=== PATIENT | female | born 1965 | race Caucasian/White ===

== ENCOUNTER 2018-09-18 05:19 | Inpatient (IN) ==
[2018-09-18] MEDS ORDERED: MORPHINE IV ONE (05:43)
--- NOTE | 2018-09-18 05:47 | PROVIDER DOCUMENTATION ---
HPI-General Adult - General Chief Complaint: Chest Pain Stated Complaint: CP Time Seen by Provider: 09/18/18 05:29 Source: patient, EMS Allergies/Adverse Reactions: Patient Allergies Allergy/AdvReac Type Severity Reaction Status Date / Time doxycycline Allergy NAUSEA/VOMI Verified 07/10/13 16:53 TING ibuprofen Allergy RASH Verified 07/10/13 16:53 Home Medications: Home Medication List Medication Instructions Recorded Confirmed Last Taken Type Clonazepam [Klonopin] 1 mg PO HS 01/23/15 01/23/15 Unknown History Hydrocodone/Acetaminophen [[place] 1 tab PO BID 01/23/15 01/23/15 Unknown History 7.5-325 Tablet] Methocarbamol [Robaxin-750] 750 mg PO PRN PRN 01/23/15 01/23/15 Unknown History Alprazolam [Xanax] 1 mg PO QHS #20 tablet 01/24/15 Unknown Rx Acetaminophen/Diphenhydramine 1 ea PO Q6H PRN #30 tab 12/31/17 Unknown Rx [[place] 325-12.5 mg Tablet] - History of Present Illness -Gen Adult Nature of Presenting Problems: Pt presents with cp, started tonight, substernal, sharp to pressure, no radiation, associated with sob, pt has pmh of CAD with stents, pt denies f/c, santiago, cough, ap, n/v/d. Pt is lying in bed in no acute distress. Location of Pain/Injury: reports: chest Pain Radiation: reports: no radiation Quality of Pain: reports: pressure, sharp Severity: reports: moderate Onset/Duration: reports: 1-3 hours ago Timing: reports: still present Context/Activities at Onset: reports: none Modifying Factors: improves with: nothing Associated Symptoms: reports: shortness of breath Similar Symptoms Previously?: No Recently seen or treated by another doctor?: No Review of Systems - Adult - REVIEW OF SYSTEMS - ADULT Constitutional: reports: no symptoms reported Eyes: reports: no symptoms reported Ears, Nose, Mouth & Throat: reports: no symptoms reported Cardiovascular: reports: see HPI Respiratory: reports: no symptoms reported Gastrointestinal: reports: no symptoms reported Genitourinary: reports: no symptoms reported Musculoskeletal: reports: no symptoms reported Integumentary: reports: no symptoms reported Neurological: reports: no symptoms reported Psychiatric: reports: no symptoms reported Endocrine: reports: no symptoms reported Hematologic/Lymphatic: reports: no symptoms reported Allergic/Immunologic: reports: no symptoms reported All Other Systems: Reviewed and Negative Past History - Adult - PAST MEDICAL HISTORY-ADULT Review of Records: reports: Old Records Reviewed, Nursing Assessment Review, Medications Reviewed, Social history reviewed & non-contributory. Major Childhood Illnesses: reports: denies history Cardiovascular: reports: HTN, hyperlipidemia Respiratory: reports: COPD Gastrointestinal: reports: denies history Genitourinary: reports: denies history Musculoskeletal: reports: chronic pain Neurological: reports: headaches/migraines Psychiatric: reports: anxiety, depression Endocrine/Immune: reports: lupus Other Conditions: reports: denies history - PRIOR SURGERIES/PROCEDURES Surgical/Procedure History: reports: colonoscopy, hysterectomy, orthopedic (extremity) - IMMUNIZATION STATUS Childhood Immunizations: See Nurse Assessment Flu Vaccine: See Nurse Assessment - FAMILY HISTORY Family History: diabetes, CAD over 55 yo, HTN Physical Exam-General - PHYSICAL EXAM-ADULT Initial Vital Signs Reviewed: Yes - CONSTITUTIONAL General Appearance: appears well - EYES Eyes: PERRL/EOMI - HEAD, EARS, NOSE, MOUTH & THROAT HENMT: TMs normal - NECK Neck: normal inspection - RESPIRATORY Respiratory: no respiratory distress, no accessory muscle use - CARDIOVASCULAR Cardiovascular: regular rate, rhythm - GASTROINTESTINAL (ABDOMEN) Abdominal Exam: non tender, soft - LYMPHATIC Lymphatic: no adenopathy - MUSCULOSKELETAL Back Exam: normal inspection Extremity: normal range of motion - SKIN Integumentary: normal color - NEUROLOGIC Neurologic: baggage clerk II-XII nml as tested - PSYCHIATRIC Psych/Mental Status: normal mood/affect Progress - PLAN OF CARE/RESULTS Progress/Plan/Lab Results: Orders Category Date Time Status Nursing- Obtain EKG ONCE Care 09/18/18 05:43 Ordered cxr [CHEST-1 VIEW] [RAD] Stat Exams 09/18/18 05:42 Ordered CBC WITH ELECTRONIC DIFF [HEME] Stat Lab 09/18/18 05:42 Uncollected COMPREHENSIVE METABOLIC PANEL [CHEM] Stat Lab 09/18/18 05:42 Uncollected PRO B-NATRIURETIC PEPTIDE Stat Lab 09/18/18 05:42 Uncollected TROPONIN T Stat Lab 09/18/18 05:42 Uncollected Morphine Med 09/18/18 05:43 Once 4 mg IV NOW ONE EKG [EKG] Stat Ther 09/18/18 05:43 Ordered Result Diagrams: 09/18/18 05:41 09/18/18 05:41 - CONSULTS/PCP/HOSPITALIST Notification #1 *Consult/PCP/Hospitalist*: MATTHEW JACOBS ADMIT TO HOSPITALIST 0700 Time Discussed: 07:00 Departure - Departure Date of Disposition Decision: 09/18/18 Time of Disposition Decision: 08:11 DIAGNOSIS: Chest pain due to CAD, CHF (congestive heart failure), Macrocytic anemia Disposition: ADMITTED INPATIENT 09 Certified Medical Emergency: Emergent Condition: Stable Referrals and Follow-Ups: Jesus Elizalde MD [Primary Care Provider] - - Critical Care Note This patient required my direct & personal management of CC.: No Attestation - Physician/ RAFAELA Attestation Patient care was provided by Advanced Practice Provider:: No The physician spent face to face time with patient:: Yes Advanced Practice Provider documentation review:: Supervising physician onsite and consulted in the evaluation and care of this patient. The physician did have a face to face encounter with the patient.
[2018-09-18 05:54] LABS: BASO# 0.03 X1000 (0.0-0.2); BASO% 0.5 % (0.0-0.8); EOS# 0.33 X1000 (0.0-0.7); HEMATOCRIT 34.8 % (37.0-47.0); HEMOGLOBIN 11.3 g/dL (12.0-16.0); LYMPH# 2.28 X1000 (1.2-3.4); LYMPH% 41.7 % (20.5-51.1); MCH 33.1 PG (27-31); MCHC 32.5 g/dL (33-37); MCV 102.1 FL (81-99); MONO# 0.47 X1000 (0.11-0.59); MONO% 8.6 % (1.7-9.3); MPV 10.7 FL (7.4-10.4); NEUT# 2.36 X1000 (1.4-6.5); NEUT% 43.2 % (42.2-75.2); PLT 158 X1000 (130-400); RBC 3.41 XMIL (4.2-5.4); RDW 13.5 % (11.5-14.5); WBC 5.47 X1000 (4.8-10.8)
[2018-09-18] MEDS ORDERED: ZOFRAN ONE (05:59)
[2018-09-18] MEDS ORDERED: ZOFRAN IV ONE (06:02)
[2018-09-18 06:30] LABS: ALB/GLOB RATIO 1.6; ALBUMIN 3.9 g/dL (3.5-5.0); CALCIUM 8.5 mg/dL (8.8-10.2); CREATININE 1.1 mg/dL (0.5-0.9); POTASSIUM 3.8 mmol/L (3.5-5.1); TOTAL BILIRUBIN 0.26 mg/dL (0.20-1.00); TOTAL PROTEIN 6.3 g/dL (6.3-8.3)
--- NOTE | 2018-09-18 07:00 | EKG Report ---
Test Performed on : 09/18/2018 05:28:16 AM Test Reason : chest pain Blood Pressure : / mmHG Vent. Rate : 100 BPM Atrial Rate : 100 BPM P-R Int : 144 ms QRS Dur : 080 ms QT Int : 340 ms P-R-T Axes : 068 042 073 degrees QTc Int : 438 ms Normal sinus rhythm. Possible Inferior infarct (cited on or before 26-FEB-2017) Abnormal ECG When compared with ECG of 26-FEB-2017 14:03, Sinus rhythm. has replaced Ectopic atrial rhythm. Minimal criteria for Anterior infarct are no longer present Questionable change in initial forces of Inferior leads Nonspecific T wave abnormality no longer evident in Anterior leads Unconfirmed Result
[2018-09-18] MEDS ORDERED: LASIX IV ONE (07:46)
[2018-09-18] MEDS ORDERED: ZOFRAN PO PRN (07:49)
[2018-09-18] MEDS ORDERED: NS 1,000 ML IV ONE (07:49)
[2018-09-18] MEDS ORDERED: TYLENOL PO PRN (07:49)
--- NOTE | 2018-09-18 08:02 | ED EKG INTERP ---
This chart was entered by Amparo Lyles Scribe, acting as scribe for Donnie Chinchilla DO. EKG Interpretation - EKG Time of EKG reading by physician:: 07:49 EKG Read and Signed by:: Donnie Chinchilla EKG Interpretation (*Must complete 3 of following elements*): Abnormal Rate: 63 Rhythm: NSR [place]: normal QRS: normal FL Interval: normal ST Wave: normal Comments: inferior infarct, age undetermined Attestation - Physician/ RAFAELA Attestation Patient care was provided by Advanced Practice Provider:: No The physician spent face to face time with patient:: Yes Advanced Practice Provider documentation review:: Supervising physician onsite and consulted in the evaluation and care of this patient. The physician did have a face to face encounter with the patient. This chart was documented by the indicated scribe, (Amparo Lyles Scribe) and accurately reflects the services I performed and decisions made by , Donnie Chinchilla DO, as attested by the provider's signature.
[2018-09-18] MEDS ORDERED: NITROGLYCERIN SL PRN (09:11)
--- NOTE | 2018-09-18 09:22 | HISTORY AND PHYSICAL ---
Ms. Greco is a 53-year-old who started having chest pain, it woke her up last night. She came to the emergency room on the morning of 09/18/2018. She has had a previous history of coronary artery disease, last year had a myocardial infarction and she had a stent placed followed by 2 more stents according to her report and she developed some pressure that felt similar to when she had a heart attack. Had pressure in the middle of her chest, it started radiating into her jaw and feels like there is pressure in her jaw as well. PAST MEDICAL HISTORY: Hypertension, hypercholesterolemia. PAST SURGICAL HISTORY: She has had a right knee, I think arthroscopic surgery. She had a hysterectomy and took out her appendix at that time. ALLERGIES: She has allergies to doxycycline, ibuprofen. FAMILY HISTORY: Mother with diabetes and coronary artery disease and hypertension as well. I think she said her father had bypass surgery. SOCIAL HISTORY: Still smokes. Negative for alcohol. No illicit drugs. REVIEW OF SYSTEMS: General: She did not report any change in weight. No fever. Chills. HEENT: No change in visual or hearing acuity. Respiratory: No increased work of breathing or dyspnea. Cardiovascular: No chest pain or tachy palpitation until this morning. She has not had previous episodes since last year. GI: Does not report any change in her bowels. No gross hematuria, dysuria. Musculoskeletal, Neurologic: No focal complaints. Immunologic, Hemologic: No significant history. EXAM: General: She is awake and alert, oriented x3, pleasant. Vital Signs: Temp 97.9 degrees, pulse 56, respirations 12, blood pressure 136/75. HEENT: Pupils are equal and round. Lungs: Clear in all lung d[place]. Cardiovascular: Regular rhythm and rate without murmur or S3. Abdomen: Soft. Skin: Warm and dry. Extremities: Carotid, radial, femoral pulses 2+ and symmetrical. Neck: Supple. No sign of adenopathy, cervical or supraclavicular, and no sign of thyromegaly. LAB: White count 5470, hematocrit 34, platelet count 558,000. Sodium 147, potassium 3.8, chloride 110, BUN 8, and creatinine 1.1, AST 30, ALT 17, albumin 3.9. Chest x-ray looks clear. No sign of infiltrate. Mediastinum unremarkable. I do not see any acute pathology. ASSESSMENT AND PLAN: 1. Chest pain suggestive of unstable angina with a history of coronary artery disease and a previous myocardial infarction. We are going to admit to the hospital and check serial enzymes, troponin and CK. We will also get serial EKGs. Ask cardiology to evaluate. I expect she will need a perfusion scan or GXT. We will check her thyroid, T4, TSH, B12 and folate. 2. I suspect she has some underlying COPD, but she seems to be breathing comfortably, good air and gas exchange at this time. 3. History of hypertension, aware. We will follow her blood pressure. Continue to look over her list of medications. I do not see where she is on anything for blood pressure at this point. We will follow that. 4. History of osteoarthritis. She was taking some [place]. Not sure if it is chronic pain for her. 5. History of anxiety. I think she takes Klonopin at night. She is on Xanax as well. I think we will continue the Klonopin 1 mg at bedtime and I guess we will give her Xanax, we will do 0.5 q.12 p.r.n. anxiety. cc: Zak Chan MD
[2018-09-18] MEDS: XANAX PO SCH ×2 (09:33→21:37)
[2018-09-18] MEDS: ASPIRIN PO SCH (09:33)
--- NOTE | 2018-09-18 10:02 | Diag Imaging Result Doc PS360 ---
EXAM: CHEST-1 VIEW 09/18/2018 HISTORY: chest pain TECHNIQUE: AP portable at 0608 COMMENT: There is no evidence of acute cardiac or pulmonary disease. Compared to 02/26/2017 there has been no significant change. IMPRESSION: No acute disease. Electronically signed by Vinod Glaser 09/18/2018 10:00 AM
[2018-09-18 11:33] LABS: CALCIUM 8.6 mg/dL (8.8-10.2)
[2018-09-18 11:39] LABS: POTASSIUM 3.9 mmol/L (3.5-5.1)
--- NOTE | 2018-09-18 11:47 | EKG Report ---
Test Performed on : 09/18/2018 07:49:28 AM Test Reason : ED. No order in [place] Blood Pressure : / mmHG Vent. Rate : 063 BPM Atrial Rate : 063 BPM P-R Int : 130 ms QRS Dur : 082 ms QT Int : 430 ms P-R-T Axes : 044 018 018 degrees QTc Int : 440 ms Normal sinus rhythm. Inferior infarct (cited on or before 26-FEB-2017) Abnormal ECG When compared with ECG of 18-SEP-2018 05:28, (Unconfirmed) Vent. rate has decreased BY 37 BPM Nonspecific T wave abnormality no longer evident in Lateral leads Unconfirmed Result
[2018-09-18 11:59] LABS: FREE T4 0.42 ng/dL (0.93-1.70); TSH 26.31 uIUmL (0.27-4.20)
[2018-09-18] MEDS ORDERED: PLAVIX PO ONE (17:00)
[2018-09-18] MEDS ORDERED: LOVENOX SUBQ SCH (17:15)
--- NOTE | 2018-09-18 18:17 | CONSULTATION ---
DATE OF CONSULTATION: 09/18/2018 IMPRESSION: 1. Recurrent angina suspicious for unstable angina. 2. Atherosclerotic coronary disease. 3. Status post myocardial infarction in October 2017 treated at [place] with emergent coronary angioplasty/stenting. 4. The patient had additional Angioplasty/stenting of second vessel 1 month later in 2018. 5. Chronic cigarette use. 6. Hypertension. 7. Hyperlipidemia. RECOMMENDATIONS: 1. Continue aspirin daily. Add Plavix back. 2. Lovenox 1 mg/kg subcutaneously q.12. 3. Serial cardiac enzymes. 4. Given clinical presentation and coronary risk profile, favor cardiac catheterization and selective coronary angiography. The rationale for this approach was discussed with the patient as well as the potential need for transfer to [facility] should she need percutaneous coronary intervention/stenting. Potential hazards were also reviewed. She wished to proceed. We will schedule procedure for Friday a.m. 5. Repeat fasting lipid profile in a.m. 6. Smoking cessation strongly advised. HISTORY: This 53-year-old white female with past history of atherosclerotic coronary disease as outlined above, hypertension, hyperlipidemia, and chronic ongoing cigarette use was admitted to the emergency room this morning after she presented with recurrent angina. She is pretty much in the ER throughout the day and arrived to the floor mid afternoon. At that point. Our office was contacted and notified of consult which was conveyed to me at 3:15 p.m. Patient relates that early this morning she developed substernal chest discomfort, which radiated to her left shoulder and left arm as well as to her jaw. There was some associated shortness of breath. Symptoms were very much like what she had with her myocardial infarction last year. Symptoms persisted and she was brought to the emergency room. She relates her chest symptoms improved with treatment in the emergency room but lasted perhaps an hour in all. She has not had any recurrence. Unfortunately she continues to smoke 1-1/2 pack of cigarettes per day. PAST MEDICAL HISTORY: 1. Atherosclerotic coronary disease as outlined above. 2. Hypertension. 3. Hypercholesterolemia. PAST SURGICAL HISTORY: Includes arthroscopic surgery on right knee. She is status post hysterectomy as well as incidental appendectomy. ALLERGIES: She has allergies to doxycycline and ibuprofen. MEDICATIONS PRIOR TO ADMISSION: As listed. SOCIAL HISTORY: Unfortunately she continues to smoke 1-1/2 pack of cigarettes per day. She does not use alcohol. FAMILY HISTORY: Positive for coronary disease. Her mother had coronary bypass surgery at age 58. REVIEW OF SYSTEMS: Pulmonary: Negative beyond history of present illness. Constitutional: Negative beyond history of present illness. Gastrointestinal: Negative. The remainder of review of systems negative/noncontributory beyond history of present illness with 14- total system review. PHYSICAL EXAMINATION: General: This is a pleasant, middle-aged female in no distress. Vital signs: Blood pressure 132/55, heart rate 61, oxygen saturation 99% on room air. HEENT Exam: Extraocular movements intact. Mucous membranes moist. Neck: Supple. No jugular venous distention. There are no carotid bruits. Chest: Clear to auscultation. Cardiac Exam: Reveals a regular rate and rhythm without appreciable murmur or gallop. Abdomen: Soft, nontender. Bowel sounds are normal. Extremities: Without edema. Neurologic Exam: Reveals her to be alert and fully oriented. Speech is fluent. She moves all 4 extremities equally well. Skin: Warm and dry. Psychiatric: Reveals her mood to be appropriate. PERTINENT DATA: Twelve-lead EKG demonstrates sinus rhythm and possible inferior infarct of undetermined age. There are no acute ST or T-wave changes. LABORATORY DATA: Includes white blood cell count 5.47, hematocrit 34.8, hemoglobin 11.3, platelet count 158,000, sodium 142, potassium 3.9, chloride 104, carbon dioxide 29, BUN 9, creatinine 1.0, glucose 95, troponin T less than 0.01, TSH 26.31, free T4 0.42. cc: Franky Perkins MD
[2018-09-18] MEDS: NICODERM PATCH TD SCH (18:18)
[2018-09-18] MEDS: LOVENOX SUBQ SCH (18:18)
[2018-09-18] MEDS: LOPRESSOR PO SCH (20:24)
[2018-09-18] MEDS: TYLENOL PO PRN (21:37)
[2018-09-18] MEDS: ZOFRAN IV PRN (21:37)
[2018-09-19] MEDS: ZOFRAN IV PRN (00:30)
[2018-09-19] MEDS ORDERED: PHENERGAN IV ONE (01:57)
[2018-09-19] MEDS ORDERED: SODIUM CHLORIDE 0.9% INJ SCH (01:57)
[2018-09-19] MEDS ORDERED: SODIUM CHLORIDE 0.9% INJ ONE (02:00)
[2018-09-19] MEDS: TYLENOL PO PRN (05:31)
[2018-09-19] MEDS: PRILOSEC PO SCH ×2 (05:31→06:19)
[2018-09-19] MEDS: LOVENOX SUBQ SCH ×2 (05:32→17:50)
[2018-09-19 06:11] LABS: EOS# 0.13 X1000 (0.0-0.7); HEMATOCRIT 35.8 % (37.0-47.0); HEMOGLOBIN 11.6 g/dL (12.0-16.0); LYMPH# 0.47 X1000 (1.2-3.4); LYMPH% 7.2 % (20.5-51.1); MCH 32.9 PG (27-31); MCHC 32.4 g/dL (33-37); MCV 101.4 FL (81-99); MONO# 0.49 X1000 (0.11-0.59); MONO% 7.5 % (1.7-9.3); MPV 11.2 FL (7.4-10.4); NEUT# 5.46 X1000 (1.4-6.5); NEUT% 83.3 % (42.2-75.2); PLT 129 X1000 (130-400); RBC 3.53 XMIL (4.2-5.4); RDW 13.5 % (11.5-14.5); WBC 6.55 X1000 (4.8-10.8)
[2018-09-19] MEDS: LOPRESSOR PO SCH ×2 (10:31→22:10)
[2018-09-19] MEDS: XANAX PO SCH ×2 (10:46→22:10)
[2018-09-19] MEDS: NICODERM PATCH TD SCH (10:46)
[2018-09-19] MEDS: ASPIRIN PO SCH (10:46)
[2018-09-19] MEDS: PLAVIX PO SCH (10:46)
--- NOTE | 2018-09-19 10:48 | PROGRESS NOTE ---
DATE: 09/19/2018 SUBJECTIVE: Ms. Greco has not had any further chest pain. She feels kind of puny this morning, but no complaints of pain or shortness of breath, or palpitations. OBJECTIVE: Vitals: Temperature 99.7 degrees, pulse 80, respirations 16, blood pressure 92/42. HEENT: Pupils are equal and round. Lungs: Clear in all lung daven[place]. Cardiovascular: Regular rhythm and rate without murmur or S3. Abdomen: Soft. Skin: Warm and dry. ASSESSMENT AND PLAN: Chest pain, atypical, but recurrent angina, suspicious for unstable angina. She had a myocardial infarction back in October 2017, treated at [place] with emergent coronary angioplasty and stenting. The patient had additional angioplasty and stenting of a second vessel a month later in 2018, so, we are going to continue the aspirin, add the Plavix back. She is on Lovenox 1 mg/kg q.12h. Probably need to pursue heart catheterization. Dr. Perkins, Cardiology, is following. Continue her current care. cc: Zak Chan MD
--- NOTE | 2018-09-19 13:04 | CARDIOLOGY PROGRESS NOTE ---
DATE: 09/19/2018 CHIEF COMPLAINT: Chest pain. SUBJECTIVE: Mrs. Greco is feeling better today. The chest pain has subsided. Based on troponin levels, a total of 5, the first one was 0.014, the next four are all negative. Of note, her TSH is elevated at 26.31 and her free T4 is low at 0.42. It is probably worth mentioning that her folate is low and her B12 vitamin is also low, and she has microcytic anemia. OBJECTIVE: Vital signs: Blood pressure is 92/42, temperature 99.7, pulse 80, respirations 16. General: She is awake, appears to be older than her stated age, somewhat emaciated. Somewhat pale. HEENT: Otherwise unremarkable. Chest: Diffusely diminished breath sounds. Heart: Sounds regular and rhythmic. She does have a soft systolic murmur 1-2/6 over the left sternal border. Abdomen: Soft. Extremities: Show diffusely decreased pulses. Neurological exam: Follow commands, moves all 4 extremities. Her creatinine was borderline elevated yesterday at 1.0. IMPRESSION: A patient who has: 1. Recurrent angina pectoris. 2. Patient with severe 3 vessel disease. She has had previous intervention to the circumflex coronary artery and also to the right coronary artery, which are diffusely diseased vessels. 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 3. Continued tobacco use. 4. Evidence of MACROCYTIC anemia. Her MCV is 101 and 102 on the 2 blood tests performed, and her folate level is low and her vitamin B12 level is also low. 5. Hypothyroidism. Her TSH is 26.3. RECOMMENDATIONS: From the viewpoint of Cardiology, we will check lipids. We will consider doing a stress test on Friday morning because the patient does have medical issues that are going on and I would prefer to do a stress test prior to subjecting her to another heart catheterization mostly because this patient has very small peripheral arteries. Her femoral vessel was very small on the most recent heart catheterization and I am uncertain as to whether or not her radial artery can be accessed due to peripheral vascular disease. If the stress test is markedly abnormal, then I would suggest a referral to [facility] for catheterization. The folate, the vitamin B12, and thyroid need to be replaced. I will discuss this with the Hospitalist service. cc: MD DARRIUS Chaney
[2018-09-19] MEDS ORDERED: VENTOLIN HFA INH PRN (16:59)
[2018-09-19] MEDS: NORCO-7.5 PO PRN ×2 (17:47→22:55)
[2018-09-19] MEDS: LIPITOR PO SCH (22:10)
[2018-09-20 06:28] LABS: CHOLESTEROL 118 mg/dL (0-200); DIRECT LDL 61 mg/dL; HDL 39 mg/dL (45-65); LDL 51 mg/dL; TRIGLYCERIDES 138 mg/dL (35-135); VLDL 28 mg/dL
--- NOTE | 2018-09-20 07:10 | PROGRESS NOTE ---
DATE: 09/20/2018 SUBJECTIVE: Ms. Greco has no chest pain. Breathing comfortably. She is getting her EKG, another EKG this morning. OBJECTIVE: On exam, temperature 97.8 degrees, pulse 80, respirations 16, blood pressure 137/63. Pupils are equal and round. Lungs are clear in all lung davenport. Cardiovascular Examination: Regular rhythm and rate without murmur or S3. Abdomen soft. Skin is warm and dry. Urine output 1200 mL. ASSESSMENT AND PLAN: 1. Chest pain, atypical but suspicious for recurrent angina. Plan is heart catheterization, I think on Friday. She has really not had any further chest pain since she has been in and there seems to be a component of chest wall pain as well. 2. History of atherosclerotic coronary artery disease. 3. Status post myocardial infarction in October of 2017, treated in [place] with an emergent angioplasty and stenting. 4. She had additional angioplasty and stenting of a second vessel, in I think November of 2017. 5. Chronic cigarette use. 6. Hypertension. 7. Hyperlipidemia. 8. She is on aspirin and Plavix. Getting Lovenox as well at 1 mg/kg. Following serial cardiac enzymes and electrocardiogram. I think the plan is for heart catheterization in the morning. Troponins have been less than 0.01, CK 132 and 126. cc: Zak Chan MD
[2018-09-20] MEDS: NICODERM PATCH TD SCH (08:35)
[2018-09-20] MEDS: XANAX PO SCH (08:35)
[2018-09-20] MEDS: LOPRESSOR PO SCH (08:35)
[2018-09-20] MEDS: ASPIRIN PO SCH (08:35)
[2018-09-20] MEDS: PLAVIX PO SCH (08:35)
[2018-09-20] MEDS: VITAMIN B-12 PO SCH (08:35)
[2018-09-20] MEDS: NORCO-7.5 PO PRN ×3 (09:17→18:58)
[2018-09-20] MEDS: PRILOSEC PO SCH (09:19)
[2018-09-20] MEDS: LOVENOX SUBQ SCH ×2 (09:19→18:40)
[2018-09-20] MEDS: SYNTHROID PO SCH (19:25)
[2018-09-21] MEDS: LOPRESSOR PO SCH ×3 (00:15→20:00)
[2018-09-21] MEDS: LIPITOR PO SCH (00:15)
[2018-09-21] MEDS: NORCO-7.5 PO PRN ×4 (00:31→22:05)
[2018-09-21] MEDS: XANAX PO SCH ×2 (00:34→18:21)
[2018-09-21] MEDS: PRILOSEC PO SCH ×2 (04:44→06:21)
[2018-09-21] MEDS: SYNTHROID PO SCH (06:20)
[2018-09-21] MEDS: LOVENOX SUBQ SCH ×2 (06:21→17:30)
[2018-09-21] MEDS ORDERED: SYNTHROID PO SCH (07:00)
--- NOTE | 2018-09-21 07:10 | EKG Report ---
Test Performed on : 09/20/2018 06:22:17 AM Test Reason : chest pain/prior IA Blood Pressure : / mmHG Vent. Rate : 061 BPM Atrial Rate : 061 BPM P-R Int : 128 ms QRS Dur : 086 ms QT Int : 384 ms P-R-T Axes : 040 004 050 degrees QTc Int : 386 ms Normal sinus rhythm. Inferior infarct (cited on or before 26-FEB-2017) Possible Anterior infarct , age undetermined Abnormal ECG When compared with ECG of 18-SEP-2018 07:49, (Unconfirmed) Nonspecific T wave abnormality now evident in Lateral leads Confirmed by Nickolas MCCARTY, Ricky ([id number]) on 09/21/2018 8:55:47 AM
[2018-09-21] MEDS: VITAMIN B-12 PO SCH (09:11)
[2018-09-21] MEDS: ASPIRIN PO SCH (09:11)
[2018-09-21] MEDS: PLAVIX PO SCH (09:12)
[2018-09-21] MEDS: NICODERM PATCH TD SCH (09:12)
[2018-09-21 09:29] LABS: INR 0.95; PROTIME 13.4 Seconds (11.0-16.0)
[2018-09-21 09:39] LABS: AGAP 7; BUN 8 mg/dL (8-22); CHLORIDE 106 mmol/L (98-107); COSMO 287; CREATININE 0.7 mg/dL (0.5-0.9); ESTIMATED GFR > 60; GLUCOSE 100 mg/dL (70-104); MAGNESIUM 1.8 mg/dL (1.5-2.7); POTASSIUM 3.8 mmol/L (3.5-5.1); SODIUM 145 mmol/L (136-145); TCO2 32 mmol/L (25-35)
--- NOTE | 2018-09-21 13:20 | PROGRESS NOTE ---
DATE: 09/21/2018 SUBJECTIVE: Ms. Greco has not had any further chest pain. She was not going to get an angiogram this morning. She was actually given her Lovenox this morning, but actually Cardiology has decided to do a stress test myocardial perfusion test today instead, so I put her back on her diet. OBJECTIVE: Temperature 98.4 degrees, pulse 60, respirations 18, blood pressure 139/69. Pupils are equal and round. Lungs are clear in all lung daven[place].Cardiovascular: Regular rhythm and rate without murmur or S3. Abdomen is soft. Skin is warm and dry. LABORATORY DATA: Sodium 145, potassium 3.8, chloride 106, BUN 8, and creatinine 0.7. ASSESSMENT AND PLAN: 1. Chest pain, atypical, suspicious for recurrent angina. I think the plan is to do a myocardial perfusion scan or Lexiscan today. She has not had any further chest pain. Cardiac enzymes are negative. 2. History of atherosclerotic coronary artery disease. 3. Status post myocardial infarction back in October 2017, treated in [place] with emergent angioplasty, and I think a month later, they did another stent; that was November 2017. 4. Chronic cigarette use. 5. Hypertension. 6. Hyperlipidemia. She is on aspirin and Plavix and getting Lovenox at the present time. Continue present orders. cc: Zak Chan MD
[2018-09-21] MEDS: NORVASC PO SCH (15:47)
[2018-09-21] MEDS: ZOFRAN IV PRN (19:55)
[2018-09-21] MEDS: PRINIVIL PO SCH (20:00)
[2018-09-21] MEDS ORDERED: LIPITOR PO SCH (21:00)
[2018-09-22] MEDS: XANAX PO SCH ×2 (01:46→10:43)
[2018-09-22] MEDS: NORCO-7.5 PO PRN ×3 (02:18→14:34)
[2018-09-22] MEDS: PRILOSEC PO SCH (06:48)
[2018-09-22] MEDS ORDERED: LEXISCAN ONE (08:12)
[2018-09-22] MEDS ORDERED: ASPIRIN PO SCH (09:00)
[2018-09-22] MEDS ORDERED: NS 1,000 ML ONE (10:13)
[2018-09-22] MEDS: SYNTHROID PO SCH (10:35)
[2018-09-22] MEDS: LOPRESSOR PO SCH (10:37)
[2018-09-22] MEDS: PRINIVIL PO SCH (10:37)
[2018-09-22] MEDS: VITAMIN B-12 PO SCH (10:37)
[2018-09-22] MEDS: PLAVIX PO SCH (10:38)
[2018-09-22] MEDS: NORVASC PO SCH (10:38)
[2018-09-22] MEDS: NICODERM PATCH TD SCH (10:42)
[2018-09-22 11:38] VITALS: BP 128/66
--- NOTE | 2018-09-22 15:09 | Diag Imaging Result Document ---
PROCEDURE NAME: MYOCARDIAL PERF SCAN, STR/REST - 09/21/2018 STUDY: Rest/stress Lexiscan myocardial perfusion study. This is a two-day protocol. INDICATION: The patient with severe multivessel coronary heart disease and multiple medical problems. DESCRIPTION: The patient came into the nuclear lab and received a rest injection of technetium 99 sestamibi 26 mCi. Multiple tomographic views of the cardiac structure were obtained at rest. Subsequently the patient returned for stress test on 09/22/2018. At that time she received infusion of Lexiscan 0.4 mg. At peak infusion she was injected with technetium 99 sestamibi 25.5 mCi. Multiple tomographic views of the cardiac structures were obtained following the completion of the exercise protocol. SUMMARY OF THE ELECTROCARDIOGRAPHIC PORTION OF THE STUDY: Resting ECG shows sinus rhythm with a rate of 62 beats per minute. Resting blood pressure 120/72. Resting ECG shows a nonspecific ST abnormality and possible anterior scar. There is also a possible inferior scar. During the protocol, the heart rate increased up to 113 beats per minute. Blood pressure went up to 136/73. The patient reported some chest pressure at the end of test with left-sided jaw pain, resolved on its own. No dyspnea or arrhythmias were noted. In summary, the electrocardiographic response to an infusion of Lexiscan is deemed to be nonspecific. SUMMARY OF THE MYOCARDIAL PERFUSION PORTION OF THE STUDY: Poststress tomographic views of the left ventricle showed a severe moderately extensive apical anteroseptal defect. The rest images suggest partial reversibility of the defect. The polar plots revealed the same. There is evidence of an apical anteroseptal scar that involves a moderate area of the apex of the left ventricle. There is partial reversibility of this defect, probably by 30% to 40%. This is consistent with previous anterior apical infarction with marisabel-scar ischemia. Gated SPECT shows ejection fraction of 53% with akinesis of the most apical portion of the left ventricle. Lung/heart ratio is mildly elevated at 0.44. TID is 1.03. SUMMARY: This study showed 1. Abnormal resting electrocardiogram with nonspecific response to infusion of Lexiscan. 2. Abnormal poststress myocardial perfusion scan. There is scintigraphic suggestion of an apical anterior scar with mild marisabel-scar ischemia. 3. Generally preserved left ventricular systolic function with ejection fraction of 53%, actually both modalities - the Bernardo Tool protocol and the Myometrix protocol show the same ejection fraction of 53% with apical anterior akinesis. Clinical correlation is recommended. cc: MD Bianka Chaney PA
--- NOTE | 2018-09-22 16:12 | PROGRESS NOTE ---
DATE: 09/22/2018 SUBJECTIVE: Today Ms. Greco refers to be doing a lot better. She denies any more epigastric nor chest pain. OBJECTIVE: Vital signs: Blood pressure is 128/66, pulse is 54, respirations 18 and temperature is 98.2 degrees. General exam: Ms. Greco is a 53-year-old female. She is in bed in no distress. HEENT: Mucosa is pink and moist. Anicteric. Acyanotic. Neck: Supple. Chest: Clear to auscultation. No crepitations. No rhonchi. Cardiovascular: Regular rate and rhythm. No murmurs, no rubs, no gallops. GI: Abdomen is soft, nontender. Bowel sounds present. Extremities: No pedal edema. WHITEWATER RAFTING GUIDE: Patient is awake, alert, oriented. There is no focal neurological deficit. STRESS TEST: Report shows an abnormal post-stress myocardial perfusion scan. There is an apical anterior scar with mild marisabel-scar ischemia. Ejection fraction is 53% with apical anterior akinesis. ASSESSMENT: 1. Chest pain in patient who has remarkable history of arteriosclerotic coronary artery disease. She just had a stress test yesterday. The report seems to be remarkably abnormal. There is some marisabel-scar ischemia. I have just spoken with her coke oven mason, Dr. Green. I have read the report to him and have also notified him that currently Ms. Greco is asymptomatic, and he recommends that Ms. Greco follows up with him within a week on an outpatient basis. 2. Macrocytic anemia with folate and B 12 deficiency. We will continue to replace. 3. Hypothyroidism. Patient is on levothyroxine. 4. Hypertension, controlled. PLAN: So, in general, I think Ms. Greco is fairly stable at this point, is currently asymptomatic. EKGs and troponins have been trended and unremarkable. I have reached out to his coke oven mason, and he recommends that it is okay to discharge Ms. Greco and that Ms. Greco follows up with them within a week. cc: Mathew Marie MD
--- NOTE | 2018-09-22 22:23 | DISCHARGE SUMMARY ---
ADMISSION DATE: 09/18/2018 DISCHARGE DATE: 09/22/2018 DISPOSITION: Home. FOLLOW-UP: 1. Will be Dr. Jesus Elizalde. 2. Dr. Green on 09/29/2018 at 9 in the morning. CONSULTATION DURING THIS ADMISSION: Cardiology was consulted. Patient was initially seen by Dr. Bright, followed up by Dr. Paula. At the time of the discharge I discussed the myocardial perfusion results with Dr. Green. INVASIVE PROCEDURES DONE: None. IMAGING STUDIES OF SIGNIFICANCE: 1. A chest x-ray shows no acute disease. 2. A myocardial perfusion scan shows scintigraphic suggestion of an apical anterior scar with mild marisabel-scar ischemia. Ejection fraction of 53%. DISCHARGE MEDICATIONS: 1. Albuterol nebs. 2. Aspirin 81 mg daily. 3. Atorvastatin 40 mg p.o. at bedtime. 4. Cyanocobalamin 250 mcg daily. 5. Roscoe. 6. Levothyroxine 50 mcg daily. 7. Lisinopril 100 mg XR 10 mg daily. 8. Omeprazole 20 mg daily. 9. Plavix 75 mg daily. 10. Amlodipine 5 mg daily. 11. Metoprolol 25 mg q.12 hourly. 12. Multivitamin. ADMISSION DIAGNOSIS: 1. Chest pain. 2. Suspected chronic obstructive pulmonary disease. 3. Hypertension. 4. Osteoarthritis. DIAGNOSIS AT TIME OF DISCHARGE: 1. Atypical chest pain with abnormal stress test. The patient advised to follow up with Dr. Green within 1 week. 2. History of coronary artery disease status post stents. 3. Microcytic anemia secondary to B12 and folate deficiency. 4. Hypothyroidism. 5. Hypertension. 6. Tobacco abuse. 7. Suspected underlying chronic obstructive pulmonary disease. The patient advised to follow up with Pulmonary Medicine. PRESENTING COMPLAINT: Chest pain. HISTORY OF PRESENTING COMPLAINT: Ms Greco is a 53-year-old female with a history of hypertension, dyslipidemia, previous [place] with stents about a year ago, came to the emergency department because of chest pain because of the patient high heart risk score, she was subsequently admitted for further medical care. HOSPITAL COURSE: Ms Greco was admitted to the medical floor. Pain was managed. The patient was also trended on her cardiac biomarkers and EKG was repeated. The cardiac biomarkers were for most part normal as well as the EKG. A stress test was recommended by Cardiology, which was successfully done and showed some mild marisabel-scar ischemia at the apex. The patient was seen on 2 different occasions by cardiology. Today, she refers to feel a lot better. Denies any chest pain. No shortness of breath. No dizziness and no sweating. Vitals are stable. The findings on the stress test have been discussed with Dr. Green and he is okay with Ms Greco following up with him in a week. Ms Greco is subsequently being discharged in very stable condition and will follow up with Dr. Green. We stressed very emphatically the need for tobacco cessation, and also the fact that Ms Greco might have undiagnosed COPD and needs to follow up with Pulmonary Medicine. Ms Greco levothyroxine dose has been increased and she is advised to repeat TSH in about 2 weeks with her primary care doctor and make changes to the dosing accordingly. At the time of the discharge, she was very stable. Please refer to my progress notes for today. All the discharge instructions have been discussed with Ms. Greco and she voiced understanding. Time spent for discharge is 36 minutes. cc: MD Jesus Hwang MD Ashish K. Basu, MD
== END 2018-09-22 16:48 | disposition home health service (06) | DRG 303 ==
LOC: SUPCPDRO → ED 05:19 → EDIPHOLD 05:19 → SUATTDRO 09:05 → OBSVTOIN 09:05 → 4N 14:34
PROVIDERS: ATTEND Internal Medicine
CPT/HCPCS: 71010; 71045; 78452; 80048; 80053; 80061; 82550; 82607; 82746; 83721; 83735; 83880; 84439; 84443; 84484; 85025; 85610; 93005; 93010; 93017; 94761; 96374; 96375; 99285; A9270; A9500; J1650; J1940; J2270; J2405; J2550; J2785; J7030